=== PATIENT | male | born 1950 | race Caucasian/White ===

== ENCOUNTER 2016-07-05 10:09 | Day surgery (SDC) | payer OTHER ==
[2016-07-05] MEDS ORDERED: LIDOCAINE 1% 5 ML SDV ID PRN (10:42)
[2016-07-05] MEDS ORDERED: LR 1,000 ML IV ONE (10:42)
[2016-07-05] MEDS ORDERED: LIDOCAINE 1% 2 ML INJ ONE (10:45)
[2016-07-05] MEDS ORDERED: MIDAZOLAM 2 MG/2 ML VIAL ONE (11:54)
[2016-07-05] MEDS ORDERED: fentaNYL 100 MCG/2 ML INJ ONE (11:55)
[2016-07-05] MEDS ORDERED: PROPOFOL 200 MG/20 ML VIAL ONE (11:55)
[2016-07-05] MEDS ORDERED: levOFLOXACIN 500 MG/DEXTROSE/100 ML BAG IV ONE (12:54)
--- NOTE | 2016-07-05 14:18 | GPN ---
[f rep st] PROCEDURE NOTE PREPROCEDURE DIAGNOSIS: Pancreatic body lesion, suspicious for neoplasm. POSTPROCEDURE DIAGNOSIS: Pancreatic body lesion, status post fine-needle aspiration. PROCEDURES: 1. EGD with biopsies. 2. Endoscopic ultrasound with fine-needle aspiration. The endoscopic ultrasound included the esophagus, stomach, duodenum and second portion. MEDICATIONS: Monitored anesthesia care, levofloxacin 500 mg IV given during the procedure. INDICATIONS: The patient is a 66-year-old gentleman with a history of prostate adenocarcinoma. His PSA is undetectable. He developed blood in his urine. He underwent an abdominopelvic CT scan with and without contrast on June 15, 2016. He was noted to have developed an ill-defined hazy anterior pancreatic body mass measuring 13 x 39 x 28 mm. There was no ductal dilation. The findings were concerning for a pancreatic neoplasm. He was referred for endoscopic ultrasound for further evaluation and biopsy. He also has a history of esophageal diverticulum and dysphagia. DESCRIPTION OF PROCEDURE: The end-viewing endoscope was inserted into the esophagus, into the stomach and second portion of the duodenum. The esophagus appears normal. The stomach shows erythema and biopsies were taken to evaluate for Helicobacter pylori. The duodenum and second portion were normal. Given the history of esophageal diverticulum and dysphagia, I inserted a Savary wire and removed the upper endoscope. The curvilinear echoendoscope was inserted alongside the Savary wire for safe entry into the stomach. The scope was advanced into the duodenal. The gallbladder shows multiple stones. The extrahepatic bile duct is normal. The pancreatic head appears normal. In the pancreatic body, there is a 9.3 mm x 7.5 mm hypoechoic cystic lesion not associated with the pancreatic duct. Just distal to this lesion is a very ill- defined hypoechoic lesion measuring 35 mm x 34.5 mm. The lesion has extensive shadowing which is suggestive of a cystic lesion although no hyperechoic wall is seen. The lesion is filling with debris vs solid material. A total of 5 passes were taken using the 22-gauge [employer] slimline needle. The preliminary results were suggestive of benign etiology and possible pseudocyst. The remainder of the pancreas looked normal. No lymphadenopathy was seen. IMPRESSION: 1. Mild gastritis. 2. Small 9.3 mm x 7.5 mm pancreatic body cyst. 3. Larger hypoechoic ill-defined lesion in the pancreatic body measuring 35 mm x 34.5 mm. The etiology of the finding includes both pseudocyst or malignancy. The final FNA biopsy results are pending. RECOMMENDATION: 1. Advance diet as tolerated. Discharge to home with escort. 2. Follow up on the final FNA biopsy results. If the FNA biopsy results are benign or suggestive of possible pseudocyst, I recommend he undergo our pancreatic protocol MRI to help confirm the diagnosis given the ill-defined appearance of the lesion on ultrasound. We should also check a CA 19-9. 3. Follow up in my office in the next 1-2 weeks to review biopsy results and imaging findings. Thank you for allowing me to participate in the care of your patient. Please do not hesitate to call with questions. /[id number]/[id number]
== END 2016-07-05 14:37 | disposition home or self-care (01) ==
LOC: FSGY 10:09
PROVIDERS: ATTEND Internal Medicine Gastroenterology
PROC: 0F9G3ZX Drainage of Pancreas, Percutaneous Approach, Diagnostic (ICD-10-PCS; 2016-07-05)
PROC: 0DB68ZX Excision of Stomach, Via Natural or Artificial Opening Endoscopic, Diagnostic (ICD-10-PCS; principal; 2016-07-05 12:15)
DX: K86.2 Cyst of pancreas (principal); K86.9 Disease of pancreas, unspecified; R13.10 Dysphagia, unspecified; Z87.19 Personal history of other diseases of the digestive system; Z85.46 Personal history of malignant neoplasm of prostate
CPT/HCPCS: J1956; J2250; J2704; J3010